=== PATIENT | male | born 1995 | race Caucasian/White ===

== ENCOUNTER 2019-12-20 15:30 | Outpatient (RCR) | payer OTHER, SELFPAY ==
--- NOTE | 2019-10-23 16:08 | PTOPEVAL ---
PHYSICAL THERAPY EVALUATION AND PLAN OF CARE Thank you for referring Ricardo Sykes to [facility]. I recommend Ricardo participate in physical therapy 1-2x/week for 4 weeks for HEP and body mechanics training. Please review, sign, date and return this plan of care LEONARDO. I agree with and certify that the following plan of care is medically necessary. Referring Physician Date Attending Provider: Mukul Banks Jr., MD Evaluation right sided sciatica Onset 8 weeks ago Subjective Information States he has been going to Query Text:As Reported By Patient/ the chiropractor for some time Family . he was experiecing severe right LE radicular symptoms. He went to the ED and received medication. His right LE pain is nearly gone at this point, but continues to experience low back pain. Pain Assessment Timing of Pain Assessment Timing of Pain Assessment Pre-Treatment Pain Scale Pain Scale Used Numeric (1 - 10) Self Report Pain Assessment Lower Spine, Lumbar Reported Pain Level 1 Pain Frequency Chronic,Continuous Lowest Pain Intensity 1 Greatest Pain Intensity 10 Pain Aggravating Factors Stair Climbing,Walking,Weight Bearing/Standing Pain Relief Interventions Used By Medication Patient Pain Score Pain Score 1: Self Report Cervical and Lumbar ROM Lumbar ROM Lumbar Flexion (0-90) 40 Query Text:Active in Degrees Lumbar Flexion Active Mid Crowder Query Text:Hands to: Lumbar Extension (0-40) 20 Query Text:Active in Degrees Lateral Rotation Right (0-45) 40 Query Text:Active in Degrees Lateral Rotation Left (0-45) 45 Query Text:Active in Degrees Lower Extremity Range of Motion General Lower Extremity Range of Motion Gross Lower Extremity Range of Motion right: decreased right hip IR; Comments reports feeling a pull up the back with PROM hip flexion left: WFL Cervical and Lumbar Muscle Testing Lumbar Strength Upper Abdominal Strength 3+Fair+ Lower Abdominal Strength 3+Fair+ Abdominal Obliques 3 Fair Upper Back Extension 3 Fair Lumbar Functional Strength Comments decreased right multifidi actviation on right Lower Extremity Muscle Strength Testing General Lower Extremity Strength Reason Not Measured WNL/Left,WNL/Right Gross Lower Extremity Strength hip extension bilaterally: 4/5 Muscle Length Testing Muscle Length Testing
--- NOTE | 2019-12-06 13:32 | PCPTNOTE ---
Patient called & cancelled scheduled appointment this date. He rescheduled appointment for 12/19.
--- NOTE | 2019-12-20 15:53 | PTOPEVAL ---
PHYSICAL THERAPY DISCHARGE NOTE Thank you for referring Ricardo Sykes to [facility]. Please review, sign, date and return this plan of care LEONARDO. I agree with and certify that the following plan of care is medically necessary. Referring Physician Date Attending Provider: Mukul Banks Jr., MD Discharge Diagnosis right sided sciatica Subjective Information Feeling much improved overall. Query Text:As Reported By Patient/ No leg symptoms since after Family first visit and performing stretches at home. Some foot numbness continues and has not changed in several weeks. Greater understanding of home exercises and mechanics. Self Report Pain Assessment Lower Spine, Lumbar Reported Pain Level 1 Pain Frequency Chronic,Continuous Lowest Pain Intensity 1 Lumbar ROM Lumbar Flexion (0-90) 60 Query Text:Active in Degrees Lumbar Flexion Active Mid Crowder Query Text:Hands to: Lumbar Extension (0-40) 25 Query Text:Active in Degrees Lateral Rotation Right (0-45) 45 Query Text:Active in Degrees Lateral Rotation Left (0-45) 45 Query Text:Active in Degrees Lower Extremity Range of Motion General Lower Extremity Range of Motion Gross Lower Extremity Range of Motion right: decreased right hip IR Comments left: WFL Lumbar Strength Upper Abdominal Strength 4-Good- Lower Abdominal Strength 4 Good Abdominal Obliques 4-Good- Upper Back Extension 3+Fair+ Lumbar Functional Strength Comments decreased right multifidi actviation on right General Lower Extremity Strength Reason Not Measured WNL/Left,WNL/Right Gross Lower Extremity Strength hip extension bilaterally: 5/5; functional squat: thighs parallel to floor Muscle Length Testing Two-Joint Hip Flexor Shortened Muscles Short (R) Iliopsoas,Short (L) Iliopsoas Left Hamstring Length -30 Query Text:(90 - 90 Position) Right Hamstring Length -35 Query Text:(90 - 90 Position) PT Clinical Summary Ricardo is presenting with normal strength for bilateral LE and is demonstrating significant increase in core stabliity and strength. No pelvic anomoly noted. He demonstrates proficiency with his home exercises and states understandi
== END 2019-12-21 08:25 | disposition home or self-care (01) ==
LOC: ANHPT 15:30
PROVIDERS: PCP Internal Medicine; Visit Provider Internal Medicine
DX: M54.41 Lumbago with sciatica, right side (principal)
CPT/HCPCS: 97110; 97140; 97161